=== PATIENT | female | born 1950 | race Caucasian/White ===

== ENCOUNTER 2023-08-13 12:59 | Inpatient (IN) ==
[2023-08-13 13:44] LABS: ABS Basophils 0.1 10^3/uL (0.0-0.1); ABS Lymphocytes 0.6 10^3/uL (1.0-4.8); ABS Monocytes 1.1 10^3/uL (0.0-0.9); ABS Neutrophils 13.3 10^3/uL (1.5-7.6); ABS Nucleated RBC 0.05 10^3/ul; Hematocrit 45.9 % (35-45); Hemoglobin 14.5 g/dL (11.5-14.3); Lymphocyte % 3.9 %; Mean Corpuscular Hemoglobin 26.1 pg (27-33); Mean Corpuscular Hgb Conc 31.6 g/dL (31-36); Mean Corpuscular Volume 82.4 fL (80-97); Mean Platelet Volume 6.7 fL (7.5-11.2); Nucleated Red Blood Cells % 0.3 %/100WBC (0.0-0.8); Platelet Count 274 10^3/uL (150-450); Red Blood Count 5.58 10^6/uL (3.63-4.92); Red Cell Distribution Width 17.1 % (12-17); White Blood Count 15.1 10^3/uL (3.8-11.8)
[2023-08-13 13:58] LABS: PCO2 Arterial 69 mmHg (35-45); PO2 Arterial 87 mmHg (80-100)
[2023-08-13 14:04] LABS: Albumin 3.8 g/dL (3.2-5.2); Albumin/Globulin Ratio 1.2 (1-3); C Reactive Protein 34.89 mg/L (<8.01); Calcium 9.5 mg/dL (8.6-10.3); Creatinine, Serum 0.87 mg/dL (0.51-0.95); Globulin 3.3 g/dL (2-4); Potassium 4.6 mmol/L (3.5-5.0); Total Bilirubin 0.7 mg/dL (0.2-1.0); Total Protein 7.1 g/dL (6.4-8.9); eGFR CKD-EPI 71.2 (>60)
[2023-08-13] MEDS ORDERED: Furosemide 40 mg/4 ml IV VIAL IV SLOW PU ONE (14:27)
[2023-08-13] MEDS ORDERED: Iodixanol (CONTRAST) 320 MG/ML 100 ML SDV IV ONE (15:13)
[2023-08-13] MEDS: cefTRIAXone 1 gm/50 mL D5W 1 GM/50 ML BAG IV SCH (15:27)
[2023-08-13 15:32] LABS: Urine Appearance Cloudy; Urine Bilirubin Negative (Negative); Urine Blood 2+ (Negative); Urine Color Straw; Urine Glucose Negative (Negative); Urine Ketones Negative (Negative); Urine Nitrite Negative (Negative); Urine Protein Negative (Negative); Urine Specific Gravity 1.008 (1.002-1.030); Urine Urobilinogen Negative (Negative)
[2023-08-13 15:45] LABS: Urine Bacteria 1+ (Absent); Urine Red Blood Cell 3+(>10/hpf) (Absent); Urine Squamous Epithelial Cell Present (Absent); Urine White Blood Cell Trace(0-5/hpf) (Absent)
[2023-08-13 15:49] LABS: High Sensitivity Troponin 1 Hr 24 pg/mL (<15)
[2023-08-13] MEDS: Azithromycin 500 mg/250 ml NS 500 MG/250 ML BAG IVPB SCH (16:49)
[2023-08-13] MEDS ORDERED: Enoxaparin 40 MG/0.4 ML SYR SUBCUT SCH (18:30)
[2023-08-13] MEDS: Nystatin TOP POWDER 15 GM BTL TOPICAL SCH ×2 (19:42→22:52)
[2023-08-13] MEDS ORDERED: Furosemide 40 mg/4 ml IV VIAL IV ONE (23:06)
[2023-08-14 02:23] LABS: PO2 Arterial 76 mmHg (80-100)
[2023-08-14 02:24] LABS: PCO2 Arterial 100 mmHg (35-45)
[2023-08-14 04:34] LABS: Hematocrit 44.4 % (35-45); Hemoglobin 14.1 g/dL (11.5-14.3); Mean Corpuscular Hemoglobin 26.3 pg (27-33); Mean Corpuscular Hgb Conc 31.8 g/dL (31-36); Mean Corpuscular Volume 82.7 fL (80-97); Mean Platelet Volume 6.5 fL (7.5-11.2); Platelet Count 226 10^3/uL (150-450); Red Blood Count 5.37 10^6/uL (3.63-4.92); Red Cell Distribution Width 17.1 % (12-17); White Blood Count 14.7 10^3/uL (3.8-11.8)
[2023-08-14 04:59] LABS: Albumin 3.6 g/dL (3.2-5.2); Albumin/Globulin Ratio 1.1 (1-3); Calcium 9.1 mg/dL (8.6-10.3); Creatinine, Serum 0.82 mg/dL (0.51-0.95); Globulin 3.3 g/dL (2-4); High Sensitivity Troponin 1 Hr 18 pg/mL (<15); Potassium 4.1 mmol/L (3.5-5.0); Total Bilirubin 0.7 mg/dL (0.2-1.0); Total Protein 6.9 g/dL (6.4-8.9); eGFR CKD-EPI 76.4 (>60)
[2023-08-14 05:18] LABS: TSH Ultra Thyroid Stim Horm 2.29 mcIU/mL (0.34-5.60)
[2023-08-14 05:33] LABS: PO2 Arterial 53 mmHg (80-100)
[2023-08-14 05:34] LABS: PCO2 Arterial 79 mmHg (35-45)
[2023-08-14] MEDS: Nystatin TOP POWDER 15 GM BTL TOPICAL SCH ×3 (07:55→20:51)
[2023-08-14] MEDS ORDERED: Dextrose 50% Syringe 50 ml 25 GM/50 ML SYRINGE IV PUSH PRN (09:24)
[2023-08-14] MEDS ORDERED: Pantoprazole VIAL 40 MG VIAL IV SCH (13:00)
[2023-08-14] MEDS: cefTRIAXone 1 gm/50 mL D5W 1 GM/50 ML BAG IV SCH (15:18)
[2023-08-14] MEDS: Azithromycin 500 mg/250 ml NS 500 MG/250 ML BAG IVPB SCH (16:39)
[2023-08-15 04:35] LABS: ABS Eosinophils 0.1 10^3/uL (0.0-0.5); ABS Monocytes 0.9 10^3/uL (0.0-0.9); ABS Neutrophils 9.8 10^3/uL (1.5-7.6); ABS Nucleated RBC 0.02 10^3/ul; Eosinophil % 1.2 %; Hematocrit 38.6 % (35-45); Hemoglobin 12.1 g/dL (11.5-14.3); Lymphocyte % 8.6 %; Mean Corpuscular Hemoglobin 25.3 pg (27-33); Mean Corpuscular Hgb Conc 31.2 g/dL (31-36); Mean Corpuscular Volume 81.2 fL (80-97); Mean Platelet Volume 6.5 fL (7.5-11.2); Nucleated Red Blood Cells % 0.1 %/100WBC (0.0-0.8); Platelet Count 199 10^3/uL (150-450); Red Blood Count 4.76 10^6/uL (3.63-4.92); Red Cell Distribution Width 16.7 % (12-17); White Blood Count 11.9 10^3/uL (3.8-11.8)
[2023-08-15 05:01] LABS: Albumin 3.1 g/dL (3.2-5.2); Albumin/Globulin Ratio 1.1 (1-3); C Reactive Protein 19.48 mg/L (<8.01); Calcium 8.7 mg/dL (8.6-10.3); Creatinine, Serum 0.71 mg/dL (0.51-0.95); Globulin 2.7 g/dL (2-4); Magnesium 1.9 mg/dL (1.9-2.7); Potassium 3.7 mmol/L (3.5-5.0); Total Bilirubin 0.7 mg/dL (0.2-1.0); Total Protein 5.8 g/dL (6.4-8.9); eGFR CKD-EPI 90.8 (>60)
[2023-08-15] MEDS ORDERED: Enoxaparin 40 MG/0.4 ML SYR SUBCUT SCH (06:00)
[2023-08-15] MEDS ORDERED: Potassium Chlor 20 meq TAB.ER PO ONE (08:59)
[2023-08-15] MEDS ORDERED: Sulfur Hexaflouride MICROSPHR 25 MG VIAL ONE (10:29)
[2023-08-15] MEDS: Nystatin TOP POWDER 15 GM BTL TOPICAL SCH ×3 (10:59→21:06)
[2023-08-15] MEDS: cefTRIAXone 1 gm/50 mL D5W 1 GM/50 ML BAG IV SCH (15:34)
[2023-08-15] MEDS: Azithromycin 500 mg/250 ml NS 500 MG/250 ML BAG IVPB SCH (16:07)
[2023-08-15] MEDS: Enoxaparin 60 MG/0.6 ML SYR SUBCUT SCH (17:53)
[2023-08-16 05:22] LABS: ABS Basophils 0.1 10^3/uL (0.0-0.1); ABS Eosinophils 0.2 10^3/uL (0.0-0.5); ABS Lymphocytes 0.6 10^3/uL (1.0-4.8); ABS Monocytes 0.9 10^3/uL (0.0-0.9); ABS Neutrophils 9.1 10^3/uL (1.5-7.6); ABS Nucleated RBC 0.01 10^3/ul; Eosinophil % 1.5 %; Hemoglobin 12.3 g/dL (11.5-14.3); Mean Corpuscular Hemoglobin 25.7 pg (27-33); Mean Corpuscular Hgb Conc 31.6 g/dL (31-36); Mean Corpuscular Volume 81.4 fL (80-97); Mean Platelet Volume 6.7 fL (7.5-11.2); Platelet Count 214 10^3/uL (150-450); Red Blood Count 4.79 10^6/uL (3.63-4.92); Red Cell Distribution Width 16.6 % (12-17); White Blood Count 10.9 10^3/uL (3.8-11.8)
[2023-08-16] MEDS: Enoxaparin 60 MG/0.6 ML SYR SUBCUT SCH ×2 (05:29→18:02)
[2023-08-16 05:37] LABS: Calcium 8.8 mg/dL (8.6-10.3); Creatinine, Serum 0.64 mg/dL (0.51-0.95); Potassium 3.8 mmol/L (3.5-5.0); eGFR CKD-EPI 94.4 (>60)
[2023-08-16] MEDS ORDERED: Potassium Chlor 20 meq TAB.ER PO ONE (07:17)
[2023-08-16] MEDS: Nystatin TOP POWDER 15 GM BTL TOPICAL SCH ×4 (08:18→20:37)
[2023-08-16] MEDS ORDERED: Dextran 70/Hypromellose Tears Eye Drops 15 ml BTL (for Artificials Tears) BOTH EYES PRN (09:50)
[2023-08-16] MEDS: cefTRIAXone 1 gm/50 mL D5W 1 GM/50 ML BAG IV SCH (19:26)
[2023-08-16] MEDS: Azithromycin 500 mg/250 ml NS 500 MG/250 ML BAG IVPB SCH (19:26)
[2023-08-16 22:09] LABS: PCO2 Arterial 65 mmHg (35-45); PO2 Arterial 77 mmHg (80-100)
[2023-08-17] MEDS ORDERED: Lidocaine 1% MPF 5 ML VIAL INJ ONE (00:34)
[2023-08-17 05:07] LABS: PCO2 Arterial 71 mmHg (35-45); PO2 Arterial 84 mmHg (80-100)
[2023-08-17] MEDS: Enoxaparin 60 MG/0.6 ML SYR SUBCUT SCH ×2 (05:12→17:55)
[2023-08-17 07:14] LABS: ABS Eosinophils 0.2 10^3/uL (0.0-0.5); ABS Lymphocytes 0.7 10^3/uL (1.0-4.8); ABS Monocytes 0.8 10^3/uL (0.0-0.9); ABS Neutrophils 8.1 10^3/uL (1.5-7.6); Eosinophil % 2.3 %; Hematocrit 42.2 % (35-45); Hemoglobin 13.1 g/dL (11.5-14.3); Lymphocyte % 7.2 %; Mean Corpuscular Hemoglobin 25.6 pg (27-33); Mean Corpuscular Hgb Conc 31.1 g/dL (31-36); Mean Corpuscular Volume 82.2 fL (80-97); Platelet Count 193 10^3/uL (150-450); Red Blood Count 5.14 10^6/uL (3.63-4.92); Red Cell Distribution Width 16.8 % (12-17); White Blood Count 9.9 10^3/uL (3.8-11.8)
[2023-08-17 07:32] LABS: Calcium 9.2 mg/dL (8.6-10.3); Creatinine, Serum 0.57 mg/dL (0.51-0.95); Potassium 3.7 mmol/L (3.5-5.0); eGFR CKD-EPI 97.1 (>60)
[2023-08-17] MEDS: Nystatin TOP POWDER 15 GM BTL TOPICAL SCH ×3 (13:51→20:42)
[2023-08-17] MEDS: cefTRIAXone 1 gm/50 mL D5W 1 GM/50 ML BAG IV SCH (17:17)
[2023-08-18] MEDS: Enoxaparin 60 MG/0.6 ML SYR SUBCUT SCH ×2 (05:31→18:30)
[2023-08-18 06:39] LABS: ABS Basophils 0.1 10^3/uL (0.0-0.1); ABS Eosinophils 0.2 10^3/uL (0.0-0.5); ABS Lymphocytes 0.5 10^3/uL (1.0-4.8); ABS Monocytes 0.7 10^3/uL (0.0-0.9); ABS Neutrophils 6.7 10^3/uL (1.5-7.6); Eosinophil % 2.4 %; Hematocrit 38.6 % (35-45); Lymphocyte % 5.9 %; Mean Corpuscular Hemoglobin 25.3 pg (27-33); Mean Corpuscular Hgb Conc 31.1 g/dL (31-36); Mean Corpuscular Volume 81.3 fL (80-97); Mean Platelet Volume 6.7 fL (7.5-11.2); Platelet Count 196 10^3/uL (150-450); Red Blood Count 4.74 10^6/uL (3.63-4.92); Red Cell Distribution Width 17.1 % (12-17); White Blood Count 8.2 10^3/uL (3.8-11.8)
[2023-08-18 07:10] LABS: Creatinine, Serum 0.5 mg/dL (0.51-0.95); Potassium 4.2 mmol/L (3.5-5.0); eGFR CKD-EPI 100.2 (>60)
[2023-08-18 08:00] LABS: HDL Cholesterol 38.7 mg/dL
[2023-08-18] MEDS: Polyethylene Glycol 3350 17 GM PACKET PO PRN (09:10)
[2023-08-18] MEDS: Nystatin TOP POWDER 15 GM BTL TOPICAL SCH ×3 (10:00→20:47)
[2023-08-18] MEDS ORDERED: Magnesium Hydroxide LIQ 30 ML UDC PO PRN (22:18)
[2023-08-18] MEDS ORDERED: Senna TAB 8.6 mg TAB PO PRN (22:18)
[2023-08-19] MEDS: Enoxaparin 60 MG/0.6 ML SYR SUBCUT SCH ×2 (05:48→17:25)
[2023-08-19 08:49] LABS: Calcium 8.8 mg/dL (8.6-10.3); Creatinine, Serum 0.44 mg/dL (0.51-0.95); Magnesium 2.2 mg/dL (1.9-2.7); eGFR CKD-EPI 103.3 (>60)
[2023-08-19] MEDS: Magnesium Hydroxide LIQ 30 ML UDC PO SCH ×2 (09:09→21:23)
[2023-08-19] MEDS: Polyethylene Glycol 3350 17 GM PACKET PO PRN (09:10)
[2023-08-19] MEDS: Nystatin TOP POWDER 15 GM BTL TOPICAL SCH ×3 (09:15→22:28)
[2023-08-19] MEDS ORDERED: Benzocaine/Menthol LOZ MT PRN (12:17)
[2023-08-20] MEDS: Enoxaparin 60 MG/0.6 ML SYR SUBCUT SCH ×2 (05:32→17:30)
[2023-08-20 09:19] LABS: Hematocrit 39.5 % (35-45); Hemoglobin 12.4 g/dL (11.5-14.3); Mean Corpuscular Hemoglobin 25.6 pg (27-33); Mean Corpuscular Hgb Conc 31.4 g/dL (31-36); Mean Corpuscular Volume 81.5 fL (80-97); Mean Platelet Volume 6.8 fL (7.5-11.2); Platelet Count 207 10^3/uL (150-450); Red Blood Count 4.85 10^6/uL (3.63-4.92); White Blood Count 7.1 10^3/uL (3.8-11.8)
[2023-08-20] MEDS: Magnesium Hydroxide LIQ 30 ML UDC PO SCH ×2 (09:51→21:32)
[2023-08-20] MEDS: Nystatin TOP POWDER 15 GM BTL TOPICAL SCH ×3 (09:52→21:35)
[2023-08-21] MEDS: Enoxaparin 60 MG/0.6 ML SYR SUBCUT SCH ×2 (08:31→17:30)
[2023-08-21] MEDS: Nystatin TOP POWDER 15 GM BTL TOPICAL SCH ×3 (08:32→22:17)
[2023-08-22] MEDS: Enoxaparin 60 MG/0.6 ML SYR SUBCUT SCH (05:34)
[2023-08-22 06:28] LABS: Hematocrit 39.5 % (35-45); Hemoglobin 12.4 g/dL (11.5-14.3); Mean Corpuscular Hemoglobin 25.2 pg (27-33); Mean Corpuscular Hgb Conc 31.4 g/dL (31-36); Mean Corpuscular Volume 80.3 fL (80-97); Mean Platelet Volume 7.1 fL (7.5-11.2); Platelet Count 206 10^3/uL (150-450); Red Blood Count 4.92 10^6/uL (3.63-4.92); White Blood Count 7.7 10^3/uL (3.8-11.8)
[2023-08-22 06:44] LABS: Calcium 9.1 mg/dL (8.6-10.3); Creatinine, Serum 0.53 mg/dL (0.51-0.95); eGFR CKD-EPI 98.8 (>60)
[2023-08-22] MEDS: Nystatin TOP POWDER 15 GM BTL TOPICAL SCH ×2 (08:13→12:48)
[2023-08-22 14:43] VITALS: BP 162/64
== END 2023-08-22 16:08 | DRG 189 ==
LOC: ED 12:59 → SUATTDRO 14:27 → EDHOLD 14:27 → MEDTELE 17:23 → ICU 08-14 03:00 → MEDTELE 08-16 16:40
PROVIDERS: ADMIT Internal Medicine; ATTEND Internal Medicine